=== PATIENT | male | born 1995 | race Caucasian/White ===

== ENCOUNTER 2017-07-19 18:03 | Emergency (ER) | payer OTHER ==
[~2017-07-19] VITALS: Ht 185.4 cm; Wt 69.0 kg
[2017-07-19] MEDS ORDERED: NORCO 5-325 TA1 EACH PO (20:56)
== END 2017-07-19 21:27 | disposition home or self-care (01) ==
LOC: ED 18:03
PROC: 2W2SX4Z Dressing of Right Foot using Bandage (ICD-10-PCS; principal; 2017-07-19)
DX: T25.221A Burn of second degree of right foot, initial encounter (principal); X11.8XXA Contact with other hot tap-water, initial encounter
CPT/HCPCS: 16020; 99282

== ENCOUNTER 2017-07-22 13:35 | Emergency (ER) | payer OTHER ==
[~2017-07-22] VITALS: Ht 185.4 cm; Wt 69.0 kg
[~2017-07-22 13:35] MED LIST: NORCO 5-325 TA1 EACH PO
[2017-07-22] MEDS ORDERED: SILVADENE20 GM TOP (13:54)
== END 2017-07-22 14:31 | disposition home or self-care (01) ==
LOC: ED 13:35
DX: T25.221D Burn of second degree of right foot, subsequent encounter (principal); X12.XXXD Contact with other hot fluids, subsequent encounter
CPT/HCPCS: 99282

== ENCOUNTER 2018-11-19 17:07 | Emergency (ER) | payer SELFPAY ==
[~2018-11-19] VITALS: Ht 185.4 cm; Wt 86.6 kg
--- OUTSIDE RECORDS SUMMARY | ~2018-11-19 | XMS | Clinical Summary ---
Demographics + + + | Address | [address] | | | [place] [address] | + + + | Home Phone | | + + + | Preferred Language | Unknown | + + + | Marital Status | Single | + + + | Rastafari Affiliation | 1041 | + + + | Race | Unknown | + + + | Ethnic Group | Unknown | + + + Author + + + | Author | [facility] | | | and [facility] | + + + | Organization | [facility] | | | and [facility] | + + + | Address | Unknown | + + + | Phone | Unavailable | + + + Support + + +---------+ + | Name | Relationship | Address | Phone | + + +---------+ + | Nash Baer | ECON | Unknown | | + + +---------+ + Care Team Providers + +------+ + | Care Crab Fisherman Name | Role | Phone | + +------+ + PP | Unavailable | + +------+ + Allergies Not on File Medications Not on file Active Problems Not on file Social History + +-------+ +--------+------+ | Tobacco Use | Types | Packs/Day | Years | Date | | | | | Used | | + +-------+ +--------+------+ | Never Assessed | | | | | + +-------+ +--------+------+ + + + | Sex Assigned at | Date Recorded | | | | + + + | Not on file | | + + + + + + + | Job Start Date | Occupation | Industry | + + + + | Not on file | Not on file | Not on file | + + + + + + + + | Travel History | Travel Start | Travel End | + + + + + + | No recent travel history available. | + + Last Filed Vital Signs + + + + | Vital Sign | Reading | Time Taken | + + + + | Blood Pressure | 122/80 | 11/02/2014 1755 PDT | + + + + | Pulse | 95 | 11/02/20141754 PDT | + + + + | Temperature | 36.7 C (98.1 F) | 09/26/20140 PST | + + + + | Respiratory Rate | 16 | 11/02/20141754 PDT | + + + + | Oxygen Saturation | 96% | 11/02/20141754 PDT | + + + + | Inhaled Oxygen | - | - | | Concentration | | | + + + + | Weight | 75.8 kg (167 lb) | 11/02/20141754 PDT | + + + + | Height | 185.4 cm (6' 1") | 11/02/20141754 PDT | + + + + | Body Mass Index | 22.03 | 11/02/20141754 PDT | + + + + Plan of Treatment + + + + + | Health Maintenance | Due Date | Last Done | Comments | + + + + + | Vaccine: | | | | | Dtap/Tdap/Td (1 - | 5 | | | | Tdap) | | | | + + + + + | Vaccine: Influenza | | | | | (Season Ended) | 9 | | | + + + + + Results Not on filefrom Last 3 Months
--- OUTSIDE RECORDS SUMMARY | ~2018-11-19 | XMS | Clinical Summary ---
Demographics + + + | Address | [address] | | | [place] [address] | + + + | Home Phone | | + + + | Preferred Language | Unknown | + + + | Marital Status | Single | + + + | Judaism Affiliation | 1041 | + + + | Race | Unknown | + + + | Ethnic Group | Unknown | + + + Author + + + | Author | [facility] | | [facility] and [facility] | + + + | Organization | [facility] | | | and [...] Team Providers + +------+ + | Care Quantitative Researcher Name | Role | Phone | + [...]
[~2018-11-19 17:07] MED LIST changes: +SILVADENE20 GM TOP
[2018-11-19] MEDS ORDERED: ONDANSETRON ODT4 MG PO (18:52)
== END 2018-11-19 19:04 | disposition home or self-care (01) ==
LOC: ED 17:07
DX: R11.2 Nausea with vomiting, unspecified (principal); R10.12 Left upper quadrant pain
CPT/HCPCS: 80053; 81001; 83690; 85025; 96374; 99284-25; J1885; J7030

== ENCOUNTER 2020-06-15 01:38 | Emergency (ER) | payer OTHER ==
[~2020-06-15] VITALS: Ht 185.4 cm; Wt 86.6 kg
[~2020-06-15 01:38] MED LIST changes: +AMOXICILLIN500 MG PO; +ONDANSETRON ODT4 MG PO
[2020-06-15] MEDS ORDERED: VALACYCLOVIR500 MG PO (02:03)
== END 2020-06-15 02:18 | disposition home or self-care (01) ==
LOC: ED 01:38
DX: A60.01 Herpesviral infection of penis (principal)
CPT/HCPCS: 87529; 99283

== ENCOUNTER 2020-09-09 16:03 | Emergency (ER) | payer OTHER ==
[~2020-09-09] VITALS: Ht 182.9 cm; Wt 104.3 kg
[~2020-09-09 16:03] MED LIST changes: +VALACYCLOVIR500 MG PO
== END 2020-09-09 18:35 | disposition home or self-care (01) ==
LOC: ED 16:03
DX: U07.1 COVID-19 (principal)
CPT/HCPCS: 71045; 94640; 94664; 99285-25; C9803; U0003

== ENCOUNTER 2021-06-26 05:07 | Emergency (ER) | payer OTHER ==
[~2021-06-26] VITALS: Ht 182.9 cm; Wt 110.9 kg
[2021-06-26] MEDS ORDERED: CEPHALEXIN500 MG PO (06:01)
== END 2021-06-26 06:22 | disposition home or self-care (01) ==
LOC: ED 05:07
DX: K04.7 Periapical abscess without sinus (principal)
CPT/HCPCS: 99282